=== PATIENT | male | born 1975 | race Caucasian/White ===

== ENCOUNTER → 2016-10-28 | Outpatient (CLI) | payer OTHER ==
[~2016-10-28] MED LIST: AFRIN NS; AMLO5TAB2 PO; BABY ASPIRIN PO; D3 PO; FENO145T13 PO; LOSA100T6 PO; METFORMIN HCL PO; OMEP40CA6 PO; TRIA10.8 NS
== END | disposition home or self-care (01) ==
LOC: CFH 14:43
PROVIDERS: ATTEND Anesthesiology
DX: Z01.811 Encounter for preprocedural respiratory examination (principal); E66.01 Morbid (severe) obesity due to excess calories
CPT/HCPCS: 71020